=== PATIENT | male | born 1995 | race Caucasian/White ===

== ENCOUNTER 2024-09-24 21:48 | Emergency (ER) | payer MEDICAID ==
[~2024-09-24] VITALS: Ht 175.3 cm; Wt 87.0 kg
[2024-09-24 21:52] VITALS: O2SAT 97
[2024-09-24 22:34] LABS: BASOPHILS % 0.3 % (0.0-2.0); HEMATOCRIT. 50.3 % (42.0-52.0); HEMOGLOBIN. 17.3 g/dL (14.0-18.0); LYMPHOCYTES % 11.4 % (20.0-50.0); MEAN CORPUSCULAR HEMOGLOBIN 31.6 pg (28.0-32.0); MEAN CORPUSCULAR HGB CONC 34.4 g/dL (31.0-37.0); MEAN CORPUSCULAR VOLUME 91.9 fL (80.0-94.0); MEAN PLATELET VOLUME 7.7 fl (7.4-10.4); MONOCYTES % 6.4 % (2.0-8.0); NEUTROPHILS % 81.9 % (40.0-76.0); PLATELET 252 x1000/uL (130-400); RED BLOOD CELL COUNT 5.47 mill/uL (4.7-6.1); RED CELL DISTRIBUTION WIDTH 14.7 % (11.6-14.6); WHITE BLOOD COUNT 8.2 x1000/uL (4.5-11.0)
[2024-09-24 22:40] LABS: CHLORIDE 99 mEq/L (98-107); POTASSIUM 3.4 mEq/L (3.5-5.1); SODIUM 134 mEq/L (136-145)
[2024-09-24 22:42] LABS: CALCIUM 9.2 mg/dL (8.7-10.4); CARBON DIOXIDE 31 mEq/L (21-32)
[2024-09-24 22:47] LABS: CREATININE 1.2 mg/dL (0.6-1.3); GLUCOSE 138 mg/dL (70-105); UREA NITROGEN BLOOD 9 mg/dL (9-23)
[2024-09-24 22:49] LABS: ALANINE AMINOTRANSFERASE 25 IU/L (10-49); ALBUMIN 4.2 g/dL (3.2-4.8); ASPARTATE AMINOTRANSFERASE 25 IU/L (<34); BILIRUBIN DIRECT 0.3 mg/dL (<=3.0); BILIRUBIN TOTAL 0.8 mg/dL (0.1-1.0); PROTEIN TOTAL 7.3 g/dL (6.0-8.3)
[2024-09-25] MEDS ORDERED: ACET-2708 MT (00:27)
[2024-09-25 00:53] VITALS: BP 116/51; PULSE 96; RESP 18; TEMP 37.9; O2SAT 97
== END 2024-09-25 00:57 | disposition home or self-care (01) ==
LOC: ER 21:48
DX: A08.4 Viral intestinal infection, unspecified (principal); F20.9 Schizophrenia, unspecified; Z59.00 Homelessness unspecified; Z79.899 Other long term (current) drug therapy
CPT/HCPCS: 36415; 71045; 74176; 80048; 80076; 80320; 85025; 99284; G0480